=== PATIENT | female | born 1995 | race Caucasian/White ===

== ENCOUNTER 2020-03-04 10:20 | Emergency (ER) | payer BC ==
[~2020-03-04] VITALS: Ht 167.6 cm; Wt 78.9 kg
[2020-03-04] MEDS ORDERED: SODIUM CHLORIDE 0.9% 1000ML 1,000 ML IV STA ×2 (10:41→12:03)
[2020-03-04] MEDS ORDERED: PROMETHAZINE 25MG/ NS 50ML (IV) IV ONE (10:45)
[2020-03-04] MEDS ORDERED: FAMOTIDINE 20 MG/2 ML VIAL IV ONE ×2 (10:45→10:55)
--- NOTE | 2020-03-04 10:46 | Emergency Department Note ---
History of Present Illnes History of Present Illness Chief Complaint: Abdominal Complaints History of Present Illness This is a 24 year old female c/o right sided pain for 3 days, n/v, sent from Urgent Care for possible appendicitis. . 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 Any updates have been documented here. Past Medical History Recent Fever: No Clinical Suspicion of Infectio: No New/Unexplained Change in Ment: No Past Medical History: None Past Surgical History: None Social History Smoking Cessation: Unknown if ever smoked Any Illegal Drug Use: No TB Exposure/Symptoms: No Physically hurt or threatened: No Family History Family history of heart diseas: No Other Any Pre-Existing Lines (PICC,: No Is patient up to date on immun: No Review of Systems Review of Systems Constitutional: Reports no symptoms EENTM: Reports no symptoms Cardiovascular: Reports no symptoms Respiratory: Reports no symptoms Gastrointestinal: Reports as per HPI, Reports abdominal pain, Reports nausea, Reports vomiting Genitourinary: Reports no symptoms Musculoskeletal: Reports no symptoms Integumentary: Reports no symptoms Neurological: Reports no symptoms Psychological: Reports no symptoms Endocrine: Reports no symptoms Hematological/Lymphatic: Reports no symptoms Physical Exam Related Data Allergies: Coded Allergies: No Known Allergies (Unverified , 03/04/20) Vital signs reviewed: Yes Physical Exam CONSTITUTIONAL Constitutional: Present well-developed, Present well-nourished HENT HENT: Present normocephalic, Present atraumatic, Present oropharynx clear/moist, Present nose normal HENT L/R: Present left ext ear normal, Present right ext ear normal EYES Eyes: Reports PERRL, Reports conjunctivae normal NECK Neck: Present ROM normal PULMONARY Pulmonary: Present effort normal, Present breath sounds normal CARDIOVASCULAR Cardiovascular: Present regular rhythm, Present heart sounds normal, Present capillary refill normal, Present normal rate GASTROINTESTINAL Abdominal: Present soft, Present bowel sounds normal, Present tender (middle right sided) GENITOURINARY Genitourinary: Present exam deferred SKIN Skin: Present warm, Present dry MUSCULOSKELETAL Musculoskeletal: Present ROM normal NEUROLOGICAL Neurological: Present alert, Present oriented x 3, Present no gross motor or sensory deficits PSYCHOLOGICAL Psychological: Present mood/affect normal, Present judgement normal Results Laboratory Lab results reviewed: Yes Laboratory comments wbc [id number] Imaging Imaging results reviewed: Yes Imaging Comments no acute Assessment & Plan Medical Decision Making MDM acute abdomen Reassessment Reassessment time: 12:57 Reassessment doing better, taking PO well Assessment & Plan Final Impression: (1) Gastroenteritis (2) Dehydration (3) Abdominal pain (4) Nausea & vomiting Depart Disposition: HOME, SELF-prison Meds Active Scripts Ondansetron Hcl* (ZOFRAN*) 4 Mg Tablet, 4 MG SL Q4HR PRN for NAUSEA, #20 MG 0 Refills Prov:MARLENY CALI MD 03/04/20 Mag Hydrox/Al Hydrox/Simeth (MAALOX MAXIMUM STRENGTH SUSP) 355 Ml Oral.susp, 30 ML PO Q6H PRN for NAUSEA, #200 ML Prov:MARLENY CALI MD 03/04/20 Famotidine (FAMOTIDINE) 20 Mg Tab, 20 MG PO DAILY, #30 TAB Prov:MARLENY CALI MD 03/04/20 Reported Medications Bupropion Hcl (BUPROPION HCL) 100 Mg Tablet, 100 MG PO DAILY, #30 TAB 03/04/20 Medications in the ED Phenergen 25 mg IV, Pepcid 20 mg IV Physician Attestation Provider Attestation Pt is taking PO well, no fever, her pain is improved, doubt appendicitis at this time MARLENY CALI MD Mar 04, 2020 10:46
[2020-03-04] MEDS ORDERED: IOPAMIDOL 370 MG/ML 200 ML INFUS..BTL INJ ONE (10:52)
[2020-03-04] MEDS ORDERED: SODIUM CHLORIDE 0.9% 50ML 50 ML ONE ×2 (10:52→10:55)
[2020-03-04] MEDS ORDERED: PROMETHAZINE HCL (IM) 25 MG/ML VIAL IM ONE (10:55)
[2020-03-04] MEDS ORDERED: SODIUM CHLORIDE 0.9% 1000ML 1,000 ML ONE ×2 (10:55→12:13)
[2020-03-04] MEDS ORDERED: BUPROPION HCL100 MG PO (11:06)
--- NOTE | 2020-03-04 12:39 | Diagnostic Imaging Report ---
EXAM: CT Abdomen and Pelvis WITHOUT intravenous contrast INDICATION: Right abdominal pain COMPARISON: None. TECHNIQUE: Abdomen and pelvis were scanned utilizing a multidetector helical scanner from the lung base to the pubic symphysis without administration of IV contrast. Coronal and sagittal reformations were obtained. IV CONTRAST: None ORAL CONTRAST: None COMPLICATIONS: None RADIATION DOSE: Total DLP: 605 mGy*cm Dose modulation, iterative reconstruction, and/or weight based adjustment of the mA/kV was utilized to reduce the radiation dose to as low as reasonably achievable. FINDINGS: LOWER THORAX: Normal. HEPATOBILIARY: No focal liver lesion. Unremarkable gallbladder. SPLEEN: No splenomegaly. PANCREAS: No focal masses or ductal dilatation. ADRENALS: No adrenal nodules. KIDNEYS/URETERS: No hydronephrosis, stones, or solid mass lesions. PELVIC ORGANS/BLADDER: Unremarkable. PERITONEUM / RETROPERITONEUM: No free air or fluid. LYMPH NODES: No lymphadenopathy. VESSELS: Unremarkable. GI TRACT: No abnormal bowel thickening. No bowel obstruction. BONES AND SOFT TISSUES: Unremarkable. IMPRESSION: No acute findings in the abdomen or pelvis. Signed by: Kalie Marino MD on 03/04/2020 12:35 PM
[2020-03-04] MEDS ORDERED: FAMOTIDINE20 MG PO (12:54)
[2020-03-04] MEDS ORDERED: MAALOX MAXIMUM355 ML PO (12:54)
[2020-03-04] MEDS ORDERED: ZOFRAN4 MG SL (12:54)
[2020-03-04 13:13] VITALS: BP 105/61
== END 2020-03-04 13:08 | disposition home or self-care (01) ==
LOC: FSED 10:20
DX: K52.9 Noninfective gastroenteritis and colitis, unspecified (principal); R10.11 Right upper quadrant pain; R11.2 Nausea with vomiting, unspecified
CPT/HCPCS: 74176; 80053; 81003; 81025; 85025; 96374; 99284; J2550; J7030; Q9967

== ENCOUNTER → 2020-07-31 | Outpatient (CLI) | payer OTHER ==
[~2020-07-31] MED LIST: BUPROPION HCL100 MG PO; COVID-19 VACC, MRNA(MODERNA)/PF 100 MCG/0.5 ML VIAL IM ONE; FAMOTIDINE20 MG PO; MAALOX MAXIMUM355 ML PO; ZOFRAN4 MG SL
== END ==
LOC: VACCPMC 18:23
DX: Z23 Encounter for immunization (principal); Z20.822 Contact with and (suspected) exposure to COVID-19